=== PATIENT | male | born 1940 | race Caucasian/White ===

== ENCOUNTER 2017-03-24 06:53 | Day surgery (SDC) | payer MEDICARE, OTHER ==
--- NOTE | ~2017-03-24 | EGD ---
EGD REPORT [facility] [address] [address] NAME: TAB LAWRENCE : [birth year] STATUS : REG [facility] [place] PAT#: [id number] AGE: 76 ADM/REG DATE : 03/24/17 MR#: [id number] REPORT SERV DATE: 03/24/17 DICTATED BY: EMORY FLORES DATE: 03/24/17 REPORT STATUS : Draft TRANSCRIBED BY: [facility] DATE: 03/24/17 [facility] Center Patient Name: Tab Lawrence Date of : 1940 Attending MD: EMORY FLORES MD Procedure Date No Time: 03/24/2017 Procedure: Colonoscopy Indications: Screening in patient at increased risk: Family history of 1st-degree relative with colorectal cancer Referring MD: Virginia MCARTHUR MD Medicines: Propofol per Anesthesia Complications: No immediate complications. Procedure: Pre-Anesthesia Assessment: - ASA Grade Assessment: [ASA Grade]. After I obtained informed consent, the scope was passed under direct vision. Throughout the procedure, the patient's blood pressure, pulse, and oxygen saturations were monitored continuously. The CF [id number] was introduced through the anus and advanced to the cecum, identified by appendiceal orifice and ileocecal valve. The colonoscopy was performed without difficulty. The patient tolerated the procedure well. The quality of the bowel preparation was good. Findings: The entire examined colon appeared normal on direct and retroflexion views. Impression: - The entire examined colon is normal on direct and retroflexion views. - cecum appears normal and photod. withdrawl time 6 minutes. Procedure Code(s): --- Professional --- 08427, Colonoscopy, flexible, proximal to splenic flexure; diagnostic, with or without collection of specimen(s) by brushing or washing, with or without colon decompression (separate procedure) Diagnosis Code(s): --- Professional --- Z12.11, Encounter for screening for malignant neoplasm of colon Z80.0, Family history of malignant neoplasm of digestive organs EGD REPORT [facility] [address] [address] NAME: TAB LAWRENCE : [birth year] STATUS : REG [facility]#: [id number] AGE: 76 ADM/REG DATE : 03/24/17 MR#: [id number] REPORT SERV DATE: 03/24/17 DICTATED BY: EMORY FLORES. DATE: 03/24/17 REPORT STATUS : Draft TRANSCRIBED BY: [facility] DATE: 03/24/17 CPT copyright 2013 [employer]. All rights reserved. The codes documented in this report are preliminary and upon medical insurance coder review may be revised to meet current compliance requirements. EMORY FLORES MD 03/24/2017 8:54 AM This report has been signed electronically. Number of Addenda: 0 Note Initiated On: 03/24/2017 8:02 AM Scope Withdrawal Time 0 hours 0 minutes 0 seconds [id number] [id number]
[~2017-03-24 06:53] MED LIST: ASA5GR PO; ASAB PO; BYSTOLIC10 MG PO; C2 PO; CARDU4 PO; CLOBETASOL0.051 TOP; CO Q-10100 MG PO; CO Q-10200 MG PO; ELIQUIS 5 MG TAB5 MG PO; FERROUS SULF325 M1 PO; HYZAAR 100/25 T1 TAB PO; JANTOVEN3 MG PO; L20 PO; LIPITOR20 PO; LOP25 PO; MICARDIS H80 MG/25 M PO; MICRO-K10 MEQ PO; PACERONE100 MG PO; PRADAXA150 MG PO; PRILO PO; PROMEGA PO; SYSTANE OPH; VYTORIN 10/20 T1 TAB PO; Z100 PO
== END 2017-03-24 23:59 | disposition home or self-care (01) ==
LOC: DMU 06:53
PROVIDERS: Internal Medicine Gastroenterology
PROC: 0DJD8ZZ Inspection of Lower Intestinal Tract, Via Natural or Artificial Opening Endoscopic (ICD-10-PCS; principal; 2017-03-24 09:00)
DX: Z12.11 Encounter for screening for malignant neoplasm of colon (principal); I10 Essential (primary) hypertension; I48.91 Unspecified atrial fibrillation; I25.2 Old myocardial infarction; N40.0 Benign prostatic hyperplasia without lower urinary tract symptoms; I73.9 Peripheral vascular disease, unspecified; K21.9 Gastro-esophageal reflux disease without esophagitis; Z86.718 Personal history of other venous thrombosis and embolism; Z80.0 Family history of malignant neoplasm of digestive organs; Z95.1 Presence of aortocoronary bypass graft